=== PATIENT | male | born 1960 ===

== ENCOUNTER 2023-05-08 05:00 | Day surgery (SDC) | payer OTHER ==
[~2023-05-08] VITALS: Ht 160 cm; Wt 74.8 kg
[~2023-05-08 05:00] MED LIST: SYNTHROID50 MCG PO; ZESTRIL20 MG PO
== END 2023-05-08 11:45 | disposition home or self-care (01) ==
LOC: CIR.AMB 05:00
PROVIDERS: ATTEND Otolaryngology Otology & Neurotology
DX: H80.11 Otosclerosis involving oval window, obliterative, right ear (principal); H90.11 Conductive hearing loss, unilateral, right ear, with unrestricted hearing on the contralateral side; Z20.822 Contact with and (suspected) exposure to COVID-19; I10 Essential (primary) hypertension; E03.9 Hypothyroidism, unspecified

== ENCOUNTER 2025-01-13 05:22 | Day surgery (SDC) | payer OTHER ==
[2025-01-07 15:50] VITALS: BP 149/81
[~2025-01-13] VITALS: Ht 160 cm; Wt 73.5 kg
[2025-01-13] MEDS ORDERED: CEFAZOLIN SODIUM 1,000 MG VIAL ONE (06:52)
[2025-01-13] MEDS ORDERED: NEOMYCIN/POLYMYXIN B/HYDROCORT 20 DR/ML BOTTLE OT ONE (06:59)
[2025-01-13] MEDS ORDERED: POVIDONE-IODINE 118 ML BOTT TOP ONE (07:00)
[2025-01-13] MEDS ORDERED: POVIDONE-IODINE SCRUB 118 ML BOTT TOP ONE (07:00)
[2025-01-13] MEDS ORDERED: EPINEPHRINE HCL/PF 1 MG/ML AMPUL ONE (08:09)
[2025-01-13] MEDS ORDERED: LIDOCAINE HCL 1%/EPINEPHRINE 20ML VIAL IJ ONE (08:09)
[2025-01-13] MEDS ORDERED: PROMETHAZINE HCL 25 MG/ML AMPUL IM PRN (10:00)
[2025-01-13] MEDS ORDERED: KETOROLAC TROMETHAMINE 60 MG VIAL IM PRN (10:00)
== END 2025-01-13 12:25 | disposition home or self-care (01) ==
LOC: CIR.AMB 05:22
PROVIDERS: ATTEND Otolaryngology Otology & Neurotology
DX: H80 Otosclerosis (principal)